=== PATIENT | male | born 1985 | race Caucasian/White ===

== ENCOUNTER → 2016-10-25 | Outpatient (CLI) | payer OTHER ==
[~2016-10-25] MED LIST: OXYC1TAB3 PO
[2016-10-25 17:36] LABS: BLOOD UREA NITROGEN 13 mg/dl (7-18); BUN/CREATININE RATIO 10.5 (10-20); CALCIUM 8.9 mg/dl (8.5-10.1); CARBON DIOXIDE 29 mmol/L (21-32); CHLORIDE 105 mmol/L (98-107); CHOLESTEROL 157 mg/dl (0-200); GLUCOSE 100 mg/dl (70-99); SODIUM 142 mmol/L (136-145)
[2016-10-25 17:46] LABS: CHOLESTEROL/HDL RATIO 2.8; HDL CHOLESTEROL 56 mg/dl; LDL CHOLESTEROL CALCULATED 78 mg/dl; TRIGLYCERIDES 115 mg/dl (0-150); VERY LOW DENSITY LIPOPROT CALC 23 mg/dl
== END | disposition home or self-care (01) ==
LOC: C.LABBFT 15:38
PROVIDERS: ATTEND Nurse Practitioner
DX: R63.5 Abnormal weight gain (principal)

== ENCOUNTER → 2016-11-04 | Outpatient (CLI) | payer OTHER ==
[~2016-11-04] VITALS: Ht 152.4 cm; Wt 115.5 kg
[2016-11-04 13:10] VITALS: BP 138/88; PULSE 96; Ht 152.4 cm; Wt 115.5 kg
== END | disposition home or self-care (01) ==
LOC: C.NEUR 12:22
PROVIDERS: ATTEND Internal Medicine Pulmonary Disease
DX: G47.30 Sleep apnea, unspecified (principal); Q90.9 Down syndrome, unspecified

== ENCOUNTER → 2017-05-05 | Outpatient (CLI) | payer OTHER ==
[~2017-05-05] VITALS: Ht 152.4 cm; Wt 126.1 kg
[2017-05-05 13:36] VITALS: BP 122/87; PULSE 85; Ht 152.4 cm; Wt 126.1 kg
== END | disposition home or self-care (01) ==
LOC: C.NEUR 12:20
PROVIDERS: ATTEND Internal Medicine Pulmonary Disease
DX: G47.30 Sleep apnea, unspecified (principal); Q90.9 Down syndrome, unspecified; R63.5 Abnormal weight gain; Z80.42 Family history of malignant neoplasm of prostate

== ENCOUNTER → 2018-05-04 | Outpatient (CLI) | payer OTHER ==
[~2018-05-04] VITALS: Ht 157.5 cm; Wt 124.0 kg
[~2018-05-04] MED LIST changes: +OXYC-90 PO; -OXYC1TAB3 PO
[2018-05-04 12:42] VITALS: BP 127/83; PULSE 84; Ht 157.5 cm; Wt 124.0 kg
== END | disposition home or self-care (01) ==
LOC: C.NEUR 12:06
PROVIDERS: ATTEND Internal Medicine Pulmonary Disease
DX: G47.30 Sleep apnea, unspecified (principal); Q90.9 Down syndrome, unspecified; E66.9 Obesity, unspecified